=== PATIENT | male | born 1945 | race Caucasian/White ===

== ENCOUNTER 2017-08-14 11:44 | Inpatient (IN) | payer MEDICARE, BC ==
[2017-08-14] MEDS ORDERED: HYDROcodone/ACETAMIN 5-325 MG* 1 TAB PO ONE (11:57)
[2017-08-14] MEDS ORDERED: Dexamethasone IV* 4 MG/ML 1 ML (4 MG) IV SLOW PU ONE (11:57)
[2017-08-14 12:26] LABS: ABS Basophils 0 10^3/ul (0-0.2); ABS Eosinophils 0 10^3/ul (0-0.6); ABS Lymphocytes 0.7 10^3/ul (1.0-4.8); ABS Monocytes 0.8 10^3/ul (0-0.8); ABS Neutrophils 5.3 10^3/ul (1.5-7.7); ABS Nucleated RBC 0 10^3/ul; Eosinophil % 0.4 % (0-6); Hematocrit 47 % (42-52); Hemoglobin 15.1 g/dl (14.0-18.0); Lymphocyte % 10.8 % (25-47); Mean Corpuscular HGB Conc 32 g/dl (31-36); Mean Corpuscular Hemoglobin 27 pg (27-31); Mean Corpuscular Volume 83 fL (80-94); Mean Platelet Volume 8.7 um3 (7.4-10.4); Nucleated Red Blood Cells % 0.1; Platelet Count 268 10^3/ul (150-450); Red Cell Distribution Width 15 % (10.5-15); White Blood Count 6.9 10^3/ul (3.5-10.8)
[2017-08-14 12:43] LABS: EGFR Non-African American 48.9 (>60); INR 2.18 (0.77-1.02)
[2017-08-14] MEDS ORDERED: NS 0.9% 500 ML* 500 ML IV ONE (12:49)
--- NOTE | 2017-08-14 12:56 | RAD ---
INDICATION: Knee pain. TECHNIQUE: 4 views of the left knee were obtained. FINDINGS: There is a moderate joint effusion present. No fracture is seen. There is chondrocalcinosis present. There is mild to moderate osteoarthritic change in the patellofemoral and medial compartments. IMPRESSION: 1. JOINT EFFUSION. 2. MILD TO MODERATE OSTEOARTHRITIC CHANGE AND CHONDROCALCINOSIS.
[2017-08-14] MEDS ORDERED: oxyCODONE TAB* 5 MG TAB PO ONE (13:53)
[2017-08-14] MEDS ORDERED: MinoXIDil TAB* 2.5 MG TAB PO ONE (13:54)
[2017-08-14] MEDS ORDERED: Valsartan TAB* 160 MG PO ONE (13:54)
[2017-08-14] MEDS ORDERED: Nadolol TAB* 40 MG PO ONE ×2 (13:54→13:55)
[2017-08-14] MEDS ORDERED: D5W IV SCH (15:00)
[2017-08-14] MEDS ORDERED: NS 0.9% 1000 ML* 1,000 ML IV SCH (17:00)
[2017-08-14] MEDS ORDERED: D5W IV ONE (18:00)
[2017-08-14 19:40] LABS: Urine Appearance Cloudy; Urine Blood 2+ (Negative); Urine Color Yellow; Urine Ketones 1+ (Negative); Urine Protein 2+(100 mg/dL) (Negative); Urine Urobilinogen Negative (Negative)
[2017-08-14] MEDS ORDERED: MinoXIDil TAB* 2.5 MG TAB PO SCH (21:00)
[2017-08-14] MEDS ORDERED: oxyCODONE TAB* 5 MG TAB PO SCH (21:00)
[2017-08-14] MEDS ORDERED: Tacrolimus CAP(*) 1 MG PO SCH (21:00)
[2017-08-14] MEDS ORDERED: Famotidine TAB* 20 MG PO SCH (21:00)
[2017-08-14] MEDS ORDERED: MYCOPHENOLATE 360 MG PO SCH (21:00)
[2017-08-14] MEDS ORDERED: Brimonidine P 0.1%(NF) 1 DROP BTL BOTH EYES SCH (21:00)
[2017-08-14] MEDS ORDERED: Latanoprost 0.005%* 2.5 ml BTL BOTH EYES SCH (21:00)
[2017-08-14] MEDS ORDERED: Valsartan TAB* 160 MG PO SCH (21:00)
--- NOTE | 2017-08-14 21:34 | HP ---
CC: Tiny Mendes MD * ADMISSION HISTORY AND PHYSICAL: DATE OF ADMISSION: 08/14/17 PRIMARY CARE PROVIDER: Tiny Mendes MD HEALTHCARE PROXY: Sadia , his friend. CODE STATUS: Full. SOURCE OF INFORMATION: History obtained from interview with patient and his friend. RELIABILITY: Good. CHIEF COMPLAINT: Left knee pain. HISTORY OF PRESENT ILLNESS: This is a 71-year-old man with recent diagnosis of bronchopneumonia, was prescribed Levaquin; however, indicates that he did not take it. He says that over the last week he has had a temperature as high as 101, but running generally between 99 and 100. Over the last week, his URI symptoms improved. However, he continued with decreased appetite and had a followup visit with Dr. Mendes's office on Sunday 4 days prior to presentation , his INR was noted to be elevated at 4.0. It was thought that it is possibly elevated in the setting of decreased p.o. intake and continued Coumadin administration. He noticed that since Sunday his left knee became increasingly painful, had not noticed any swelling until today. He was supposed to have a repeat INR check today; however, noted that the pain was too severe and after consulting with his primary care physician, presented to the emergency room for further evaluation. He noticed the pain is primarily anterior, first noticed an effusion today. He felt that the skin felt warm; however, he has had no localized trauma or skin breakdown to the knee. In the emergency room, he was administered Decadron 6 mg once with some improvement in the pain in his knee; however, he did not feel that he could care for himself at home. The hospitalists were asked to admit this patient to evaluate this patient. Prior to my presentation, care management has seen the patient and informed him that in accord with the ED's assessment, he will be admitted to [facility] care, which this author agrees with. PAST MEDICAL HISTORY: Includes: 1. Renal transplant in 2008 2. Polycystic kidney disease, previously on dialysis. 3. Atrial flutter since 2008. 4. Hypertension. 5. Duodenal ulcer in 2007. 6. Glaucoma. 7. Inguinal hernia repair twice in 2005. HOME MEDICATIONS: Please note, he takes many medications twice daily with the evening dose 3 a.m. I discussed with the patient that the administration of the medications which was the one at 3 a.m. may be difficult and alter the times in which he gets it. He is okay with administering the evening dose earlier in order to receive medication consistently without any medication errors during the hospital stay. 1. Ranitidine 75 mg at bedtime. 2. Travoprost 0.004% ophthalmologic solution 1 drop both eyes daily. 3. Brimonidine 0.1% 1 drop both eyes twice daily. 4. Coumadin 2 mg daily. 5. Nadolol 160 mg daily. 6. Minoxidil 2.5 mg twice daily. 7. Valsartan 160 mg twice daily. 8. Digoxin 0.125 mg daily. 9. Tacrolimus 1 mg twice daily. 10. Mycophenolate 360 mg twice daily. 11. Oxycodone 7.5 mg twice daily. ALLERGIES: To CALCIUM. FAMILY HISTORY: Father with CVA. SOCIAL HISTORY: Quit tobacco in 1966. He is a retired physician since 2007. REVIEW OF SYSTEMS: As per HPI includes recent upper respiratory tract infection with cough and sputum production, increasing left knee pain only with use. Otherwise, all other systems negative. PHYSICAL EXAMINATION GENERAL: Thin man sitting up in bed, interactive and pleasant. No apparent distress. VITAL SIGNS: In the emergency room, 151/82, heart rate 82, respiratory rate is 17, he is 95% on room air, T-max 99 degrees Fahrenheit. HEENT: Oropharynx is clear. He has moist mucous membranes. Sclerae are anicteric. NECK: He has non-elevated JVD. He has no cervical or supraclavicular lymphadenopathy. LUNGS: His lungs have rhonchi in the right base. HEART: He has irregularly irregular heart rate. No murmurs, rubs, or gallops. ABDOMEN: Soft, nontender, nondistended. EXTREMITIES: Warm and well perfused. He has 1+ bilateral pitting edema to 6 inches below the knee. His left knee is tender to palpation. Has full range of motion without any pain with passive range of motion and he has small-to- moderate sized effusion in the left knee. NEUROLOGIC: He is alert and oriented x3. His cranial nerves II through XII are intact. He moves all extremities with 5/5 strength; the left lower extremity limited by pain. LABORATORY DATA: Laboratory data reviewed, notable for white blood cell count 6.9, 77.2% neutrophils. INR is 2.18, BUN of 31, creatinine of 1.41, CRP is 42. Uric acid is 8.0, upper limit of normal is 7.6. IMAGING: Left knee x-ray. Impression: Joint effusion, [id number] osteoarthritic changes and chondrocalcinosis. ASSESSMENT AND PLAN: This is a 71-year-old man with past medical history of polycystic kidney disease status post renal transplant in 2008, atrial fibrillation on Coumadin, recent upper respiratory tract infection complicated by decreased oral intake and supratherapeutic INR, now with left knee effusion and pain. 1. Left knee effusion, doubt septic joint, more likely hemarthrosis in the setting of supratherapeutic INR. The patient did not feel he can care for himself at home. He will be admitted to the hospital [facility] care with care to be taken over by Dr. Mendes tomorrow. I have ordered physical therapy for the patient. I am going to hold his Coumadin dose today should the knee pain not resolve and an arthrocentesis be desired tomorrow. I discussed with the patient, he is in agreement. We will not continue NSAIDs nor steroids at this point. 2. Atrial flutter, INR within range. Holding Coumadin tonight. Plan to restart tomorrow if no arthrocentesis is desired. 3. Renal transplant. Continue with home medications. 4. Hypertension. Continue home medications with hold parameters. 5. Chronic kidney disease with acute worsening, 1 L of fluid overnight. 6. DVT prophylaxis is Coumadin. 7. Diet is low salt diet. [id number]/[facility] #: [id number] [facility]
[2017-08-14] MEDS ORDERED: oxyCODONE TAB* 5 MG TAB PO PRN (23:48)
[2017-08-15] MEDS ORDERED: Latanoprost 0.005%* 2.5 ml BTL BOTH EYES SCH (03:00)
[2017-08-15] MEDS ORDERED: MinoXIDil TAB* 2.5 MG TAB PO SCH (03:00)
[2017-08-15] MEDS ORDERED: Famotidine TAB* 20 MG PO SCH (03:00)
[2017-08-15] MEDS ORDERED: Tacrolimus CAP(*) 1 MG PO SCH (03:00)
[2017-08-15] MEDS ORDERED: oxyCODONE TAB* 5 MG TAB PO SCH (03:00)
[2017-08-15] MEDS ORDERED: MYCOPHENOLATE 360 MG PO SCH (03:00)
[2017-08-15] MEDS ORDERED: Valsartan TAB* 160 MG PO SCH (03:00)
[2017-08-15] MEDS ORDERED: PTO: Brimonidine 0.2% 5 ML BTL BOTH EYES SCH (03:00)
[2017-08-15 06:42] LABS: INR 2.4 (0.77-1.02)
[2017-08-15 06:47] LABS: EGFR Non-African American 54.1 (>60)
[2017-08-15] MEDS ORDERED: Nadolol TAB* 40 MG PO SCH (09:00)
[2017-08-15] MEDS ORDERED: Digoxin TAB* 0.125 MG PO SCH (09:00)
[2017-08-15 11:18] VITALS: BP 97/51
--- NOTE | 2017-08-16 10:59 | ED ---
Demian Corrigan Angela, scribed for Viktor Tejada MD on 08/14/17 at 1157 . Lower Extremity - HPI Summary HPI Summary: This pt is a 71 y/o male presenting to [facility] via EMS c/o left knee pain x5 days. Pt reports that he began feeling discomfort on left knee 5 days ago after spending "hours in a reclining arm chair with knee extended, possibly hyperextended." Denies fall, injury, or heavy lifting. He additionally notes his left knee is warm to touch compared to his right knee. Pt states he saw his PCP (Dr. Tiny Mendes) 4 days ago and had an INR level of 4.0. Pt notes while he had a chest cold and cough 2 weeks ago, he had decreased appetite and PO intake. He notes that 2 days ago and yesterday Coumadin dose was cut in half by Dr. Mendes. Pt lives home alone. He states his left knee is so painful he is unable to take care of himself. - History of Current Complaint Stated Complaint: LT KNEE PAIN Time Seen by Provider: 08/14/17 11:46 Hx Obtained From: Patient Mechanism Of Injury: Other - knee was extended Onset of Pain: Days Onset/Duration: Still Present Severity Currently: Moderate Timing: Lasting Days Location: Is Discrete @ - left knee Associated Signs And Symptoms: Positive: Swelling, Knee Pain - left Aggravating Factor(s): Nothing Alleviating Factor(s): Nothing - Allergies/Home Medications Allergies/Adverse Reactions: Allergies Allergy/AdvReac Type Severity Reaction Status Date / Time calcium [From PhosLo] Allergy Hives Verified 08/04/17 11:58 Home Medications: Home Medications Brimonidine P 0.1%(NF) [Alphagan P 0.1% (NF)] 1 drop BOTH EYES BID 08/14/17 [ History Confirmed 08/14/17] Nadolol TAB* [Corgard TAB*] 160 mg PO DAILY 08/14/17 [History Confirmed 08/14/17 ] Ranitidine HCl (Nf) [Zantac] 75 mg PO BEDTIME 08/14/17 [History Confirmed ] Tacrolimus CAP(*) [Prograf CAP(*)] 1 mg PO BID 08/14/17 [History Confirmed 08/14] Travoprost Z 0.004% OPHTH (NF) [Travatan Z 0.004% OPTH (NF)] 1 drop BOTH EYES DAILY 08/14/17 [History Confirmed 08/14/17] Warfarin TAB(*) [Coumadin TAB(*)] 2 mg PO DAILY 08/14/17 [History Confirmed 02/21] oxyCODONE TAB* [Roxycodone TAB 5 mg*] 7.5 mg PO BID 08/14/17 [History Confirmed 08/14/17] PMH/Surg Hx/FS Hx/Imm Hx Endocrine/Hematology History: Reports: Hx Anemia - resolved Denies: Hx Diabetes Cardiovascular History: Reports: Hx Hypertension Denies: Hx Pacemaker/ICD Comment Only: Other Cardiovascular Problems/Disorders - ARRHYTHMIAS GI History: Reports: Hx Ulcer - resolved History: Reports: Hx Renal Disease - POLYCYSTIC KIDNEYS Sensory History: Reports: Hx Contacts or Glasses, Hx Glaucoma - has eye drops Denies: Hx Hearing Aid Opthamlomology History: Reports: Hx Contacts or Glasses, Hx Glaucoma - has eye drops Neurological History: Reports: Hx Headaches, Hx Migraine, Hx Nerve Disease - neuropathy Psychiatric History: Denies: Hx Panic Disorder - Cancer History Hx Chemotherapy: No - Surgical History Surgery Procedure, Year, and Place: KIDNEY TRANSPLANT- Rt - 2008. EXPLORATORY - Lt KIDNEY- 1978. [facility]IA - 2005. [facility] - VASCULAR - FUTURE DIALYSIS Hx Anesthesia Reactions: No - Family History Known Family History: Positive: Hypertension, Renal Disease - Social History Alcohol Use: Rare Substance Use Type: Reports: None Smoking Status (MU): Former Smoker Review of Systems Negative: Fever, Chills ENT: Negative Negative: Chest Pain Negative: Shortness Of Breath Gastrointestinal: Negative Musculoskeletal: Other - left knee pain Negative: Headache All Other Systems Reviewed And Are Negative: Yes Physical Exam - Summary Physical Exam Summary: VITAL SIGNS: Reviewed. GENERAL: Patient is a well-developed and nourished male who is lying comfortable in the stretcher. Patient is not in any acute respiratory distress. HEAD AND FACE: No signs of trauma. No ecchymosis, hematomas or skull depressions. No sinus tenderness. EYES: PERRLA, EOMI x 2, No injected conjunctiva, no nystagmus. EARS: Hearing grossly intact. Ear canals and tympanic membranes are within normal limits. MOUTH: Oropharynx within normal limits. NECK: Supple, trachea is midline, no adenopathy, no JVD, no carotid bruit, no c- spine tenderness, neck with full ROM. CHEST: Symmetric, no tenderness at palpation LUNGS: Clear to auscultation bilaterally. No wheezing or crackles. CVS: Regular rate and rhythm, S1 and S2 present, no murmurs or gallops appreciated. ABDOMEN: Soft, non-tender. No signs of distention. No rebound no guarding, and no masses palpated. Bowel sounds are normal. EXTREMITIES: no cyanosis or clubbing. LLE: increased effusion of left knee. No hematoma. No ecchymosis. No deformity. Decreased ROM of left knee secondary to pain. NEURO: Alert and oriented x 3. No acute neurological deficits. Speech is normal and follows commands. SKIN: Dry and warm Triage Information Reviewed: Yes Vital Signs Reviewed: Yes Diagnostics - Laboratory Result Diagrams: 08/14/17 12:06 08/14/17 12:06 Lab Statement: Any lab studies that have been ordered have been reviewed, and results considered in the medical decision making process. - Radiology Left knee XR Xray Interpretation: Positive (See Comments) - IMPRESSION: 1. Joint effusion. 2. Mild to moderate osteoarthritic change and chondrocalcinosis. Dr. Tejada has reviewed this radiology report. Radiology Interpretation Completed By: Radiologist Re-Evaluation - Re-Evaluation First Eval Re-Evaluation Time: 13:38 Comment: I reviewed the lab and XR results with the pt. Pt would like to be placed in a halfway. Second Eval Re-Evaluation Time: 15:01 Comment: rehabilitation caseworker in to see the pt. Third Eval Re-Evaluation Time: 15:38 Comment: rehabilitation caseworker spoke with the pt and recommends nursing home admission. Lower Extremity Course/Dx - Course Assessment/Plan: This pt is a 71 y/o male presenting to [facility] via EMS c/o left knee pain x5 days. Pt reports that he began feeling discomfort on left knee 5 days ago after spending "hours in a reclining arm chair with knee extended, possibly hyperextended." Denies fall, injury, or heavy lifting. He additionally notes his left knee is warm to touch compared to his right knee. Pt states he saw his PCP (Dr. Tiny Mendes) 4 days ago and had an INR level of 4.0. Pt notes while he had a chest cold and cough 2 weeks ago, he had decreased appetite and PO intake. He notes that 2 days ago and yesterday Coumadin dose was cut in half by Dr. Mendes. Pt lives home alone. He states his left knee is so painful he is unable to take care of himself. Test results without any significant abnormalities except for INR of 2.18, slight renal insufficiency, possibly secondary to dehydration, CRP is 42. XR of left knee: 1. Joint effusion. 2. Mild to moderate osteoarthritic change and chondrocalcinosis. In the ED course the pt was given Decadron as anti-inflammatory and oxycodone for the pain, he also states he is on home medications. He reports he is unable to care for himself, therefore he requested admission. I discussed the case with Dr. Mendes, pts PCP, who recommended hospital social worker evaluation. rehabilitation caseworker evaluated the pt and reported the pt can be admitted as a nursing home admission. At this point Dr. Mendes requested admission by the hospitalist. Therefore, I discussed the case with Dr. Lepe, hospitalist, who accepted the pt for admission. Pt is hemodynamically stable, alert and oriented x3. Dx: nursing home admission, left knee pain. - Diagnoses Provider Diagnoses: Left knee pain, Encounter for examination for admission to halfway - Physician Notifications Discussed Care Of Patient With: Tiny Mendes Time Discussed With Above Provider: 14:17 Instructed by Provider To: Other - I discussed pt care with Dr. Mendes, pt's PCP, who recommends a social work consult. [15:47] I discussed with Dr. Mendes , who reports to admit the pt to the hospitalist and she will follow up. [15:52 ] I spoke with Dr. Lepe, hospitalist, who accepted the pt for admission. Discharge - Sign-Out/Discharge Documenting (check all that apply): Discharge - admit to [facility] - Discharge Plan Condition: Stable Disposition: ADMITTED TO [facility] The documentation as recorded by the Demian abraham Angela accurately reflects the service I personally performed and the decisions made by me, Viktor Tejada MD.
== END 2017-08-15 15:00 | disposition home or self-care (01) | DRG 565 ==
LOC: ED 11:44 → MED 16:47 → OBSVTOIN 16:52
PROVIDERS: ADMIT Internal Medicine; ATTEND Internal Medicine Geriatric Medicine
DX: M25.462 Effusion, left knee (principal); Z94.0 Kidney transplant status; M25.562 Pain in left knee; M11.262 Other chondrocalcinosis, left knee; H40.9 Unspecified glaucoma; G62.9 Polyneuropathy, unspecified; G43.909 Migraine, unspecified, not intractable, without status migrainosus; N18.9 Chronic kidney disease, unspecified; I12.9 Hypertensive chronic kidney disease with stage 1 through stage 4 chronic kidney disease, or unspecified chronic kidney disease; Z87.891 Personal history of nicotine dependence; Z72.89 Other problems related to lifestyle; Z88.8 Allergy status to other drugs, medicaments and biological substances; Z87.11 Personal history of peptic ulcer disease; Z82.49 Family history of ischemic heart disease and other diseases of the circulatory system; Z84.1 Family history of disorders of kidney and ureter
CPT/HCPCS: 36415; 80048; 80053; 81003; 81015; 84550; 85025; 85610; 86140; 87086; 99284; A9270-GY; J1100; J7507

== ENCOUNTER 2017-09-12 18:54 | Emergency (ER) | payer MEDICARE, BC ==
[2017-09-12 19:35] VITALS: BP 153/91
[2017-09-12] MEDS ORDERED: Tetan/Diph/Pertus SYR(Tdap)* 0.5 ML SYR(BOOSTRIX) use SYR IM ONE (19:40)
--- NOTE | 2017-09-12 20:53 | UC ---
Skin Complaint HPI - HPI Summary HPI Summary: Patient is 71-year-old male presenting to the with a request for a tetanus booster. He states he injured his left index finger 2 days ago on pruning bright and recall he did not have an updated tetanus. The laceration to the left index finger is approximately 0.3 cm in length, very superficial and covered by a Band-Aid. He was able to clean the area well. He is denying any symptoms currently. - History of Current Complaint Chief Complaint: UCWounds Time Seen by Provider: 09/12/17 19:40 Stated Complaint: BOOSTER SHOT Hx Obtained From: Patient Onset/Duration: Sudden Onset Skin Exposure Onset/Duration: Hours Ago Timing: Constant Onset Severity: Mild Current Severity: Mild Pain Intensity: 0 Pain Scale Used: 0-10 Numeric Location: Hand (Left) Aggravating Factor(s): Nothing Alleviating Factor(s): Nothing Related History: Trauma - Allergy/Home Medications Allergies/Adverse Reactions: Allergies Allergy/AdvReac Type Severity Reaction Status Date / Time calcium [From PhosLo] Allergy Hives Verified 09/12/17 19:35 Review of Systems Constitutional: Negative Skin: Other - .3cm laceration to the distal tip of the L index finger ENT: Negative Cardiovascular: Negative Motor: Negative Neurovascular: Negative Musculoskeletal: Negative Psychological: Negative Is Patient Immunocompromised?: No All Other Systems Reviewed And Are Negative: Yes PMH/Surg Hx/FS Hx/Imm Hx Previously Healthy: Yes - Surgical History Surgical History: Yes Surgery Procedure, Year, and Place: KIDNEY TRANSPLANT- Rt - 2008. EXPLORATORY - Lt KIDNEY- 1978. [facility] - 2005. [facility] - VASCULAR - FUTURE DIALYSIS. PLASTIC SURGERY 2016 - Family History Known Family History: Positive: Hypertension, Renal Disease - Social History Alcohol Use: None Substance Use Type: None Smoking Status (MU): Former Smoker When Did the Patient Quit Smoking/Using Tobacco: 1967 - Immunization History Most Recent Tetanus Shot: UNKNOWN Physical Exam Triage Information Reviewed: Yes Appearance: Well-Appearing, Well-Nourished Vital Signs: Initial Vital Signs Temp 98.5 F 09/12/17 19:29 Pulse 64 09/12/17 19:29 Resp 16 09/12/17 19:29 BP 153/91 09/12/17 19:29 Pulse Ox 100 09/12/17 19:29 Vital Signs Reviewed: Yes Eye Exam: Normal Eyes: Positive: Conjunctiva Clear Respiratory Exam: Normal Respiratory: Positive: Chest non-tender, Lungs clear Cardiovascular Exam: Normal Cardiovascular: Positive: RRR Musculoskeletal Exam: Normal Musculoskeletal: Positive: Strength Intact Psychological: Positive: Normal Response To Family Skin Exam: Normal Course/Dx - Course Course Of Treatment: Booster updated. 0.3 cm small laceration to the distal tip of the left index finger which does not require sutures. Band-Aid has been applied. - Diagnoses Provider Diagnoses: Tetanus booster Discharge - Sign-Out/Discharge Documenting (check all that apply): Discharge/Admit/Transfer - Discharge Plan Condition: Stable Disposition: HOME Patient Education Materials: Tdap and Td Vaccines in Adults (ED) Referrals: Tiny Mendes MD [Primary Care Provider] - - Billing Disposition and Condition Condition: STABLE Disposition: HOME
== END 2017-09-12 19:55 | disposition home or self-care (01) ==
LOC: UCEAST 18:54
DX: S61.211D Laceration without foreign body of left index finger without damage to nail, subsequent encounter (principal); W27.8XXD Contact with other nonpowered hand tool, subsequent encounter; Z23 Encounter for immunization; Z94.0 Kidney transplant status; Z87.891 Personal history of nicotine dependence
CPT/HCPCS: 90471; 90715; 99212; G0463

== ENCOUNTER 2017-12-05 11:45 | Emergency (ER) | payer MEDICARE, BC ==
--- NOTE | 2017-12-05 13:41 | UC ---
Knee Pain HPI - HPI Summary HPI Summary: 72 year old male patient with history of kidney transplant (2008) secondary to polycystic kidney and A-fib on chronic warfarin presents with onset of progressively worsening left knee since yesterday. Describes pain as "ache" that worsens with standing, sitting, walking, and bearing weight. Improves with rest. Chronically on oxycodone for peripheral neuropathy. States took an extra dose this morning with little change in pain. He is able to bear weight and ambulate using a cane. Has noted mild swelling and slight increase warmth to touch. No erythema. Denies injury. He states he has felt generally well. Denies fever or chills.Reports a similar episode 08/2017 that resulted in an overnight hospitalization as he could not bear any weight at that time. He was noted to have an elevated INR of 4.0 prior to the onset of the pain and it was thought that the pain may represent a hematarthrosis. Review of labs at that time did also reveal an slightly elevated uric acid of 8.0. He did receive a dose of IV dexamethasone with previous episode that resulted in improvement in symptoms. - History of Current Complaint Chief Complaint: UCLowerExtremity Stated Complaint: KNEE PAIN Time Seen by Provider: 12/05/17 13:23 Hx Obtained From: Patient Onset/Duration: Gradual Onset Severity Initially: Mild Severity Currently: Moderate Location Of Injury: Left knee Pain Intensity: 8 Pain Scale Used: 0-10 Numeric Character: Aching Aggravating Factor(s): Weight Bearing, Other - sitting, standing, ambulating Alleviating Factor(s): Rest Associated Signs And Symptoms: Positive: Swelling. Negative: Redness, Bruising , Fever, Numbness, Tingling Able to Bear Weight: Yes - with cane Related History: Similar Episode/Dx as - see HPI - Risk Factors Septic Arthritis Risk Factor: Immunosuppressed Gout Risk Factor: Age ^ 38, Male, Renal Disease - Allergies/Home Medications Allergies/Adverse Reactions: Allergies Allergy/AdvReac Type Severity Reaction Status Date / Time calcium [From PhosLo] Allergy Hives Verified 12/05/17 12:24 PMH/Surg Hx/FS Hx/Imm Hx Previously Healthy: Yes Cardiovascular History: Hypertension, Atrial Fibrillation GI/ History: Renal Disease - Surgical History Surgical History: Yes Surgery Procedure, Year, and Place: KIDNEY TRANSPLANT- Rt - 2008. EXPLORATORY - Lt KIDNEY- 1978. [facility] - 2005. [facility] - VASCULAR - FUTURE DIALYSIS. PLASTIC SURGERY 2016 - Family History Known Family History: Positive: Hypertension, Renal Disease - Social History Alcohol Use: None Substance Use Type: None Smoking Status (MU): Former Smoker When Did the Patient Quit Smoking/Using Tobacco: 1967 - Immunization History Most Recent Tetanus Shot: UNKNOWN Review of Systems Constitutional: Negative Skin: Negative Respiratory: Negative Cardiovascular: Negative Motor: Decreased ROM Musculoskeletal: Arthralgia All Other Systems Reviewed And Are Negative: Yes Physical Exam Triage Information Reviewed: Yes Appearance: Well-Appearing, No Pain Distress Vital Signs: Initial Vital Signs Temp 99.1 F 12/05/17 12:15 Pulse 65 12/05/17 12:15 Resp 16 12/05/17 12:15 BP 138/81 12/05/17 12:15 Pulse Ox 100 12/05/17 12:15 Vital Signs Reviewed: Yes Musculoskeletal: Positive: Strength Intact, No Edema, ROM Limited @ - Limited extension left knee, Other: - Mild swelling medial aspect of left knee with mild increase in warmth. Non-tender to palpation. Skin Exam: Normal Diagnostics - Radiology No standard instances Xray Interpretation: No Acute Changes Radiology Interpretation Completed By: ED Physician, Radiologist Knee Pain Course/Dx - Course Course Of Treatment: Suspect patient's symptoms are likely osteoarthritis although cannot rule out possible gout considering the elevated uric acid level with his previous episode and improvement with oral steroids. Will provide patient with short course of prednisone 20 mg for 5 days and have him follow up with his PCP in a week. Reviewed conservative care measures including rest and ice as well as warning symptoms that would require immediate evaluation in the ED. Patient verbalizes understanding and agreement with POC. - Differential Dx/Diagnosis Differential Diagnosis/HQI/PQRI: Gout, Other - osteoarthritis, pseudogout, septic joint, hematarthrosis Provider Diagnoses: Left knee arthritis Discharge - Sign-Out/Discharge Documenting (check all that apply): Patient Departure - Discharge Plan Condition: Stable Disposition: HOME Prescriptions: predniSONE [Prednisone 20 MG TAB] 20 mg PO DAILY #5 tablet predniSONE [Prednisone 20 MG TAB] 20 mg PO DAILY #5 tablet Patient Education Materials: Knee Pain (ED) Referrals: Tiny Mendes MD [Primary Care Provider] - 1 Week - Billing Disposition and Condition Condition: STABLE Disposition: Home
[2017-12-05 14:51] VITALS: BP 153/90
--- NOTE | 2017-12-05 14:53 | RAD ---
HISTORY: Knee pain for 2 days COMPARISONS: None VIEWS: 4, Frontal, lateral, axial, and oblique views of the left knee FINDINGS: BONE DENSITY: Normal. BONES: There is no displaced fracture. JOINTS: There is mild to moderate tricompartmental osteoarthritis. There is chondrocalcinosis. ALIGNMENT: There is no dislocation. SOFT TISSUES: There is peripheral arterial calcification. OTHER FINDINGS: None. IMPRESSION: 1. OSTEOARTHRITIS. 2. CHONDROCALCINOSIS. 3. PERIPHERAL ARTERIAL DISEASE. 4. NO ACUTE OSSEOUS INJURY. IF SYMPTOMS PERSIST, RECOMMEND REPEAT IMAGING
== END 2017-12-05 15:20 | disposition home or self-care (01) ==
LOC: UCEAST 11:45
DX: M17.12 Unilateral primary osteoarthritis, left knee (principal); M11.262 Other chondrocalcinosis, left knee; I73.9 Peripheral vascular disease, unspecified; I48.91 Unspecified atrial fibrillation; Z79.01 Long term (current) use of anticoagulants; Q61.3 Polycystic kidney, unspecified; Z94.0 Kidney transplant status; Z88.8 Allergy status to other drugs, medicaments and biological substances; Z82.49 Family history of ischemic heart disease and other diseases of the circulatory system; Z84.1 Family history of disorders of kidney and ureter; Z87.891 Personal history of nicotine dependence
CPT/HCPCS: 99212; G0463